=== PATIENT | male | born 1970 ===

== ENCOUNTER → 2018-09-06 20:57 | Outpatient (REF) | payer OTHER, SELFPAY ==
[2018-09-06 21:45] LABS: Add Manual Diff / Slide Review NO; Basophils Percent Auto 1.3 % (0-2); Eosinophils Percent Auto 5.1 % (2-4); Hematocrit 42.5 % (41-53); Hemoglobin 13.9 g/dL (13.5-17.5); Mean Corpuscular HGB Conc 32.7 % (30-36); Mean Corpuscular Hemoglobin 26.9 PG (26-34); Mean Corpuscular Volume 82.2 fL (80-100); Monocytes Percent Auto 13.5 % (3-14); Neutrophils Absolute Auto 5600 /uL (3000-5900); Neutrophils Percent Auto 65.1 % (50-75); Platelet Count 277 X10^3/uL (150-400); Red Blood Cell Count 5.17 X10^6/uL (4.5-5.9); Red Cell Distribution Width 17.1 % (11.6-14.8); White Blood Cell Count 8.5 X10^3/uL (4.5-11.0)
[2018-09-06 22:25] LABS: Alanine Aminotransferase 36 IU/L (21-72); Albumin 4.5 g/dL (3.5-5.0); Albumin Globulin Ratio 1.6 (1.0-2.8); Alkaline Phosphatase 90 U/L (38-126); Aspartate Aminotransferase 37 IU/L (17-59); Bilirubin Total 0.3 mg/dL (0.2-1.3); Blood Urea Nitrogen 18 mg/dL (9-20); Calcium 9.9 mg/dL (8.4-10.2); Carbon Dioxide 28 mmol/L (22-32); Chloride 101 mmol/L (98-107); Estimated Glomerular Filt Rate > 60.0 mL/min (>60); Globulin 2.8 g/dL (1.7-4.1); Glucose 88 mg/dL (70-100); HEMOLYSIS < 15 (0-50); Potassium 4.9 mmol/L (3.4-5.1); Sodium 142 mmol/L (137-145); Total Protein 7.3 g/dL (6.3-8.2); Uric Acid 5.6 mg/dL (3.5-8.5)
[2018-09-06 22:57] LABS: Ferritin 22.3 ng/mL (17.9-464)
[2018-09-09 16:19] LABS: Estradiol 23 pg/mL (< 40); PSA Free % 21 % (calc) (> 25); PSA, Total 1.4 ng/mL (< 4.1)
[2018-09-11 14:14] LABS: Testosterone Free 89.1 pg/mL (35.0-155.0); Testosterone Total 471 ng/dL (250-1100)
== END ==
LOC: LAB 20:57
PROVIDERS: Visit Provider Naturopath
DX: E29.1 Testicular hypofunction (principal); D50.9 Iron deficiency anemia, unspecified; K25.0 Acute gastric ulcer with hemorrhage; M79.676 Pain in unspecified toe(s); N52.8 Other male erectile dysfunction
CPT/HCPCS: 80053; 82670; 82728; 84153; 84154; 84402; 84403; 84550; 85025

== ENCOUNTER → 2019-01-18 21:25 | Outpatient (REF) | payer OTHER, SELFPAY ==
[2019-01-18 21:45] LABS: Add Manual Diff / Slide Review NO; Basophils Absolute Auto 100 /uL (0-100); Basophils Percent Auto 0.9 % (0-2); Eosinophils Absolute Auto 500 /uL (0-450); Eosinophils Percent Auto 6.7 % (2-4); Hematocrit 44.8 % (41-53); Lymphocytes Absolute Auto 2100 /uL (1100-4500); Lymphocytes Percent Auto 27.1 % (25-40); Mean Corpuscular HGB Conc 33.4 % (30-36); Mean Corpuscular Volume 86.7 fL (80-100); Monocytes Absolute Auto 700 /uL (0-900); Monocytes Percent Auto 8.8 % (3-14); Neutrophils Absolute Auto 4400 /uL (1500-7000); Neutrophils Percent Auto 56.5 % (50-75); Platelet Count 339 X10^3/uL (150-400); Red Blood Cell Count 5.16 X10^6/uL (4.5-5.9); Red Cell Distribution Width 13.3 % (11.6-14.8); White Blood Cell Count 7.9 X10^3/uL (4.5-11.0)
[2019-01-18 23:23] LABS: Ferritin 33.7 ng/mL (17.9-464)
[2019-01-21 14:48] LABS: Estradiol 29 pg/mL (< 40)
== END ==
LOC: LAB 21:25
PROVIDERS: Visit Provider Naturopath
DX: F90.0 Attention-deficit hyperactivity disorder, predominantly inattentive type (principal); G47.00 Insomnia, unspecified; M79.676 Pain in unspecified toe(s); D50.9 Iron deficiency anemia, unspecified; E29.1 Testicular hypofunction; N52.9 Male erectile dysfunction, unspecified
CPT/HCPCS: 36415; 82670; 82728; 84153; 84154; 84270; 84402; 84403; 85025